=== PATIENT | female | born 1965 | race American Indian/Alaskan Native ===

== ENCOUNTER 2016-07-06 13:24 | Emergency (ER) | payer OTHER ==
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
[2016-07-06 16:22] VITALS: BP 147/107
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
--- NOTE | 2016-07-06 17:43 | XRay Report ---
FINAL REPORT PROCEDURE: XR SPINE LUMBOSACRAL 2-3V TECHNIQUE: Three views lumbar spine HISTORY: lower back pain hx of herniated disks COMPARISON: No prior studies are available for comparison. FINDINGS: Chronic defect superior anterior L3 and superior aspect of T12. Slight listhesis at L4. Facet arthropathy. No evidence of acute fracture seen at this time. IMPRESSION: No acute fracture seen
== END 2016-07-06 18:20 | disposition home or self-care (01) ==
LOC: ED 13:24
DX: M54.42 Lumbago with sciatica, left side (principal); M79.605 Pain in left leg; I10 Essential (primary) hypertension; Z91.040 Latex allergy status; Z88.8 Allergy status to other drugs, medicaments and biological substances
CPT/HCPCS: 72100